=== PATIENT | male | born 1990 | race Caucasian/White ===

== ENCOUNTER 2022-12-08 11:03 | Emergency (ER) | payer OTHER, SELFPAY ==
[2022-12-08] VITALS (8 sets, daily range): BP systolic 124–173; BP diastolic 73–108; PULSE 66–84; RESP 16–23; TEMP 35.9; O2SAT 97–99; BMI 40.4
--- NOTE | 2022-12-08 11:10 | DI.RAD.S_ITS ---
PROCEDURE: XR CHEST 1V INDICATIONS: chest pain TECHNIQUE: One view of the chest was acquired. COMPARISON: None. FINDINGS: Surgical changes and devices: None. Lungs and pleura: Lungs are clear. No pleural effusions or pneumothorax. Mediastinum: Mediastinal contours appear normal. Heart size is normal. Bones and chest wall: No suspicious bony lesions. Overlying soft tissues appear unremarkable. IMPRESSION: No acute cardiopulmonary pathology. Dictated by: Flo Pizano M.D. on 12/08/2022 at 11:35 Approved by: Flo Pizano M.D. on 12/08/2022 at 11:37
[2022-12-08 11:39] LABS: Add Manual Diff / Slide Review NO; Basophils Absolute Auto 0 /uL (0-100); Basophils Percent Auto 0.3 % (0-2); Eosinophils Absolute Auto 200 /uL (0-450); Eosinophils Percent Auto 2.2 % (2-4); Hematocrit 42.1 % (41-53); Hemoglobin 14.6 g/dL (13.5-17.5); Lymphocytes Absolute Auto 1300 /uL (1100-4500); Lymphocytes Percent Auto 19.7 % (25-40); Mean Corpuscular HGB Conc 34.8 % (30-36); Mean Corpuscular Hemoglobin 27.9 PG (26-34); Mean Corpuscular Volume 80.2 fL (80-100); Monocytes Absolute Auto 300 /uL (0-900); Monocytes Percent Auto 4.3 % (3-14); Neutrophils Absolute Auto 5000 /uL (1500-7000); Neutrophils Percent Auto 73.5 % (50-75); Platelet Count 244 X10^3/uL (150-400); Red Blood Cell Count 5.25 X10^6/uL (4.5-5.9); Red Cell Distribution Width 13.7 % (11.6-14.8); White Blood Cell Count 6.8 X10^3/uL (4.5-11.0)
[2022-12-08 11:52] LABS: INR 1.2 (0.9-1.3); Prothrombin Time 13.5 SECONDS (10.1-12.7)
[2022-12-08 11:55] LABS: PTT Partial Thromboplastin Tim 31 SECONDS (26-36)
[2022-12-08 11:56] LABS: Alanine Aminotransferase 57 IU/L (<50); Albumin 4.7 g/dL (3.5-5.0); Albumin Globulin Ratio 1.5 (1.0-2.8); Alkaline Phosphatase 72 U/L (38-126); Aspartate Aminotransferase 34 IU/L (17-59); BUN Creatinine Ratio 18.9 (6-22); Bilirubin Total 0.7 mg/dL (0.2-1.3); Blood Urea Nitrogen 14 mg/dL (9-20); Calcium 9.2 mg/dL (8.4-10.2); Carbon Dioxide 25 mmol/L (22-32); Chloride 102 mmol/L (98-107); Creatine Kinase 151 U/L (55-170); Estimated Glomerular Filt Rate > 60 mL/min (>60); Globulin 3.1 g/dL (1.7-4.1); Glucose 91 mg/dL (70-100); HEMOLYSIS < 15 (0-50); Lipase 43 U/L (23-300); Magnesium 2.1 mg/dL (1.6-2.3); Sodium 140 mmol/L (137-145); Total Protein 7.8 g/dL (6.3-8.2)
[2022-12-08 12:07] LABS: Troponin I < 0.012 ng/mL (0.01-0.034)
[2022-12-08 12:11] LABS: CKMB % Relative Index 0.3 % (1.5-5.0); Creatine Kinase MB 0.39 ng/mL (<2.37)
--- NOTE | 2022-12-08 12:16 | ED.CHESTPAIN ---
HPI - Chest Pain <LEIDY Ponce - Last Filed: 12/08/22 15:01> General Chief Complaint: Chest Pain Stated Complaint: SEnt bu [facility] high BP 156/100 and chest pain Time Seen by Provider: 12/08/22 12:08 Source: patient Mode of arrival: Ambulatory Limitations: no limitations History of Present Illness HPI narrative: This is a 31-year-old male with history of hypertension for 1 year and has been on lisinopril 10 mg daily for this time without blood pressure elevation over 140 systolic most of the time. Patient states that he had elevated blood pressure today and has had 5 days of midline substernal chest pain that does not respond to food. States that it has been constant in nature, he denies symptoms like reflux or dyspepsia. He denies stool changes or nausea vomiting. He denies fever, chills, upper respiratory infection symptoms. Denies history of asthma. States that he quit chewing tobacco 1 week ago, has had stress at work, has changed his diet and has had this pain in the meantime. He is feeling anxious today he states. He denies shortness of breath or changes to his breathing. He denies history of blood clots, denies cardiac history of or a at his age. Patient denies any symptoms like this in the past. Related Data Home Medications Medication Instructions Recorded Confirmed lisinopril 10 mg tablet 10 mg PO DAILY 06/21/22 06/21/22 Previous Rx's Medication Instructions Recorded hydroxyzine HCl 10 mg tablet 10 mg PO TID PRN anxiety/nausea 06/21/22 #14 tabs omeprazole 20 mg tablet,delayed 20 mg PO DAILY #90 tabs 06/21/22 release hydroxyzine HCl 25 mg tablet 25 mg PO TID PRN anxiety/nausea 12/08/22 #20 tabs lisinopril 10 mg tablet 20 mg PO DAILY #60 tabs 12/08/22 omeprazole 40 mg capsule,delayed 40 mg PO DAILY #30 caps 12/08/22 release sucralfate 1 gram tablet (Carafate) 1 g PO TID PRN epigastric pain #60 12/08/22 tabs Allergies Allergy/AdvReac Type Severity Reaction Status Date / Time No Known Drug Allergies Allergy Verified 12/08/22 11:08 Patient History <LEIDY Ponce - Last Filed: 12/08/22 15:01> Social History Smoking Status: Never smoker Smoking Status: Never smoker alcohol intake frequency: holidays/special occasions only Substance Use Type: does not use Exam <LEIDY Ponce - Last Filed: 12/08/22 15:01> Narrative Exam Narrative: Reviewed vitals signs and nursing notes. General: cooperative, comfortable, in no acute distress, well groomed HEENT: symmetrical facial expressions, moist mucous membranes Cardiovascular: regular rate and rhythm, hypertensive 130s to 140s systolic, S1-S2 without murmur, no peripheral edema, warm extremities Respiratory: normal effort, able to speak in complete sentences, without wheezing, stridor, or abnormal breath sounds. No retractions or tachypnea. GI: abdomen soft, nontender to palpation, nondistended, without masses, rebound tenderness or exquisite tenderness with exam. MSK: moves all extremities, neurovascularly intact, no weakness, normal tone Skin: brisk capillary refill, without pallor or erythema Neuro: normal speech and cognition, A&O x3, ambulatory, clear speech Psych: mental status is grossly normal, congruent mood, normal affect, pleasant and cooperative Initial Vital Signs Initial Vital Signs: Vital Signs Temperature 96.6 F L 12/08/22 11:08 Pulse Rate 84 12/08/22 11:08 Respiratory Rate 16 12/08/22 11:08 Blood Pressure 173/108 H 12/08/22 11:08 Pulse Oximetry 97 12/08/22 11:08 Oxygen Delivery Method 12/08/22 11:08 <Ever Gonzalez DO - Last Filed: 12/08/22 15:07> Initial Vital Signs Initial Vital Signs: Vital Signs Temperature 96.6 F L 12/08/22 11:08 Pulse Rate 84 12/08/22 11:08 Respiratory Rate 16 12/08/22 11:08 Blood Pressure 173/108 H 12/08/22 11:08 Pulse Oximetry 97 12/08/22 11:08 Oxygen Delivery Method 12/08/22 11:08 Course <LEIDY Ponce - Last Filed: 12/08/22 15:01> Orders Ordered: ED Orders 12/08/22 11:10 XR chest 1V Stat 12/08/22 11:21 EKG-12 Lead Stat 12/08/22 11:32 Complete Blood Count AUTO DIFF Stat Comprehensive Metabolic Panel Stat Lipase Stat Magnesium Stat Partial Thromboplastin Time Stat Prothrombin Time INR Stat Troponin & CK Cardiac Panel Stat Discontinued Medications Al Hydrox/Mg Hydrox/Simethicone 20 ml/ Lidocaine HCl 15 ml 0 ml PO NOW ONE Stop: 12/08/22 12:17 Last Admin: 12/08/22 12:31 Dose: 20 ml Documented By: CORKY Pantoprazole Sodium (Pantoprazole Dr 20 Mg Tablet) 20 mg PO NOW ONE Stop: 12/08/22 12:17 Last Admin: 12/08/22 12:24 Dose: Not Given Documented By: CORKY Pantoprazole Sodium (Pantoprazole 40 Mg Vial) 20 mg IV NOW ONE Stop: 12/08/22 12:24 Last Admin: 12/08/22 12:31 Dose: 20 mg Documented By: CORKY Vital Signs Vital signs: Vital Signs - 8 hr 12/08/22 11:08 12/08/22 11:14 12/08/22 11:30 Temperature 96.6 F L Pulse Rate 84 79 74 Respiratory Rate 16 23 Blood Pressure 173/108 H Pulse Oximetry 97 99 98 Oxygen Delivery Method Room Air 12/08/22 11:32 12/08/22 11:32 12/08/22 12:00 Temperature Pulse Rate 77 Respiratory Rate 22 Blood Pressure 139/91 H 124/75 Pulse Oximetry 98 Oxygen Delivery Method 12/08/22 12:00 12/08/22 12:30 12/08/22 12:31 Temperature Pulse Rate 72 66 Respiratory Rate 18 16 Blood Pressure 138/73 Pulse Oximetry 98 98 Oxygen Delivery Method 12/08/22 12:31 12/08/22 12:46 12/08/22 12:46 Temperature Pulse Rate 76 75 Respiratory Rate 22 22 Blood Pressure 143/78 H Pulse Oximetry 97 98 Oxygen Delivery Method <Ever Gonzalez DO - Last Filed: 12/08/22 15:07> Orders Ordered: ED Orders 12/08/22 11:10 XR chest 1V Stat 12/08/22 11:21 EKG-12 Lead Stat 12/08/22 11:32 Complete Blood Count AUTO DIFF Stat Comprehensive Metabolic Panel Stat Lipase Stat Magnesium Stat Partial Thromboplastin Time Stat Prothrombin Time INR Stat Troponin & CK Cardiac Panel Stat Discontinued Medications Al Hydrox/Mg Hydrox/Simethicone 20 ml/ Lidocaine HCl 15 ml 0 ml PO NOW ONE Stop: 12/08/22 12:17 Last Admin: 12/08/22 12:31 Dose: 20 ml Documented By: CORKY Pantoprazole Sodium (Pantoprazole Dr 20 Mg Tablet) 20 mg PO NOW ONE Stop: 12/08/22 12:17 Last Admin: 12/08/22 12:24 Dose: Not Given Documented By: CORKY Pantoprazole Sodium (Pantoprazole 40 Mg Vial) 20 mg IV NOW ONE Stop: 12/08/22 12:24 Last Admin: 12/08/22 12:31 Dose: 20 mg Documented By: CORKY Vital Signs Vital signs: Vital Signs - 8 hr 12/08/22 11:08 12/08/22 11:14 12/08/22 11:30 Temperature 96.6 F L Pulse Rate 84 79 74 Respiratory Rate 16 23 Blood Pressure 173/108 H Pulse Oximetry 97 99 98 Oxygen Delivery Method Room Air 12/08/22 11:32 12/08/22 11:32 12/08/22 12:00 Temperature Pulse Rate 77 Respiratory Rate 22 Blood Pressure 139/91 H 124/75 Pulse Oximetry 98 Oxygen Delivery Method 12/08/22 12:00 12/08/22 12:30 12/08/22 12:31 Temperature Pulse Rate 72 66 Respiratory Rate 18 16 Blood Pressure 138/73 Pulse Oximetry 98 98 Oxygen Delivery Method 12/08/22 12:31 12/08/22 12:46 12/08/22 12:46 Temperature Pulse Rate 76 75 Respiratory Rate 22 22 Blood Pressure 143/78 H Pulse Oximetry 97 98 Oxygen Delivery Method MDM - Chest Pain <BYRON PonceP - Last Filed: 12/08/22 15:01> Lab Data 12/08/22 11:32 12/08/22 11:32 Labs: Lab Results 12/08/22 12/08/22 12/08/22 Range/Units 11:32 11:32 11:32 WBC 6.8 (4.5-11.0) X10^3/uL RBC 5.25 (4.5-5.9) X10^6/uL Hgb 14.6 (13.5-17.5) g/dL Hct 42.1 (41-53) % MCV 80.2 (80-100) fL MCH 27.9 (26-34) PG MCHC 34.8 (30-36) % RDW 13.7 (11.6-14.8) % Plt Count 244 (150-400) X10^3/uL Neut % (Auto) 73.5 (50-75) % Lymph % (Auto) 19.7 L (25-40) % Evangeline % (Auto) 4.3 (3-14) % Eos % (Auto) 2.2 (2-4) % Baso % (Auto) 0.3 (0-2) % Neut # (Auto) 5000 (7338-8876) /uL Lymph # (Auto) 1300 (6244-3843) /uL Evangeline # (Auto) 300 (0-900) /uL Eos # (Auto) 200 (0-450) /uL Baso # (Auto) 0 (0-100) /uL PT 13.5 H (10.1-12.7) SECONDS INR 1.2 (0.9-1.3) APTT 31 (26-36) SECONDS Sodium 140 (137-145) mmol/L Potassium 4.0 (3.4-5.1) mmol/L Chloride 102 (98-107) mmol/L Carbon Dioxide 25 (22-32) mmol/L BUN 14 (9-20) mg/dL Creatinine 0.74 (0.66-1.25) mg/dL Estimated GFR > 60 (>60) mL/min BUN/Creatinine Ratio 18.9 (6-22) Glucose 91 (70-100) mg/dL Calcium 9.2 (8.4-10.2) mg/dL Magnesium 2.1 (1.6-2.3) mg/dL Total Bilirubin 0.7 (0.2-1.3) mg/dL AST 34 (17-59) IU/L ALT 57 H (<50) IU/L Alkaline Phosphatase 72 (38-126) U/L Total Creatine Kinase 151 (55-170) U/L CK-MB (CK-2) 0.39 (<2.37) ng/mL CK-MB (CK-2) Rel Index 0.3 L (1.5-5.0) % Troponin I < 0.012 (0.01-0.034) ng/mL Total Protein 7.8 (6.3-8.2) g/dL Albumin 4.7 (3.5-5.0) g/dL Globulin 3.1 (1.7-4.1) g/dL Albumin/Globulin Ratio 1.5 (1.0-2.8) Lipase 43 (23-300) U/L Imaging Data Chest x-ray: Radiologist's Impression: PROCEDURE:? XR CHEST 1V ? INDICATIONS:? chest pain ? TECHNIQUE:? One view of the chest was acquired.? ? COMPARISON:? None. ? FINDINGS:? ? Surgical changes and devices:? None.? ? Lungs and pleura:? Lungs are clear.? No pleural effusions or pneumothorax.? ? Mediastinum:? Mediastinal contours appear normal.? Heart size is normal.? ? Bones and chest wall:? No suspicious bony lesions.? Overlying soft tissues appear unremarkable.? ? IMPRESSION:? No acute cardiopulmonary pathology. ? ? Dictated by: Flo Pizano M.D. on 12/08/2022 at 11:35 ? ? Approved by: Flo Pizano M.D. on 12/08/2022 at 11:37 ? ECG Data Interpretation: EKG independently reviewed by myself at [1230] reveals normal sinus rhythm at [74] bpm with regular axis and intervals. No STEMI, ST segment changes, arrhythmia, or acute ischemic changes. No prior EKGs to review MDM Narrative Medical decision making narrative: Chief Complaint: Hypertension, chest pain x5 days Differential diagnoses include but are not limited to: ACS, PE, aortic dissection, myocarditis, PUD/GERD with esophagitis, costochondritis, pericarditis, myocarditis, CHF, STEMI, NSTEMI, unstable angina, viral syndrome gastric/duodenal ulcer. I have reviewed the patient's vital signs and nursing notes as well as prior records if available. Lab test results independently reviewed, pertinent findings: Patient does not have leukocytosis, anemia, coagulation abnormalities electrolyte abnormalities, elevation to liver enzymes, troponin is negative for elevation including CK, lipase of 43 Independently reviewed imaging including: Chest x-ray without widened mediastinum, focal opacity or pneumothorax Clinical decision rules or scores evaluated: Heart score of 0 Course of care and re-evaluations: Assess patient's symptoms, is not reproducible by palpation, patient endorses quitting chewing nicotine 6 days ago, has been using caffeinated workout supplements and recently changed his diet. He takes 10 mg of lisinopril daily, systolics at home have been 140s but today 150s and he came in for concern. Ordered GI cocktail which provided patient's some relief, he states that that is where his pain is coming from. Gave him 20 mg of Protonix as well, will treat with Carafate and 40 mg of omeprazole daily with follow-up with his PCP in 4 days. For hypertension, Will treat patient with 20 mg lisinopril daily, he does not have bothersome symptoms including cough or headache. He understands to reduce his lisinopril to 10 mg daily if he has any systolic blood pressures less than 110 or less than 100. He has scheduled follow-up, no evidence of strain on his EKG or troponin. Recommend patient follow-up with [facility] for upper endoscopy if his symptoms improve but not fully go away on omeprazole. Shared GERD diet and FODMAP diet for diet recommendations. Shared decision making: With patient regarding plan of care Patient's symptoms improved over duration of stay with above-stated therapies. Social considerations that may affect disposition: None Questions are addressed and there is agreement with the plan and for follow-up. Patient is appropriate for outpatient management. MIPS: This encounter doesn't have any diagnosis' associated with MIPS criteria. <Ever Gonzalez, DO - Last Filed: 12/08/22 15:07> Lab Data Labs: Lab Results 12/08/22 12/08/22 12/08/22 Range/Units 11:32 11:32 11:32 WBC 6.8 (4.5-11.0) X10^3/uL RBC 5.25 (4.5-5.9) X10^6/uL Hgb 14.6 (13.5-17.5) g/dL Hct 42.1 (41-53) % MCV 80.2 (80-100) fL MCH 27.9 (26-34) PG MCHC 34.8 (30-36) % RDW 13.7 (11.6-14.8) % Plt Count 244 (150-400) X10^3/uL Neut % (Auto) 73.5 (50-75) % Lymph % (Auto) 19.7 L (25-40) % Evangeline % (Auto) 4.3 (3-14) % Eos % (Auto) 2.2 (2-4) % Baso % (Auto) 0.3 (0-2) % Neut # (Auto) 5000 (8586-2816) /uL Lymph # (Auto) 1300 (5708-9114) /uL Evangeline # (Auto) 300 (0-900) /uL Eos # (Auto) 200 (0-450) /uL Baso # (Auto) 0 (0-100) /uL PT 13.5 H (10.1-12.7) SECONDS INR 1.2 (0.9-1.3) APTT 31 (26-36) SECONDS Sodium 140 (137-145) mmol/L Potassium 4.0 (3.4-5.1) mmol/L Chloride 102 (98-107) mmol/L Carbon Dioxide 25 (22-32) mmol/L BUN 14 (9-20) mg/dL Creatinine 0.74 (0.66-1.25) mg/dL Estimated GFR > 60 (>60) mL/min BUN/Creatinine Ratio 18.9 (6-22) Glucose 91 (70-100) mg/dL Calcium 9.2 (8.4-10.2) mg/dL Magnesium 2.1 (1.6-2.3) mg/dL Total Bilirubin 0.7 (0.2-1.3) mg/dL AST 34 (17-59) IU/L ALT 57 H (<50) IU/L Alkaline Phosphatase 72 (38-126) U/L Total Creatine Kinase 151 (55-170) U/L CK-MB (CK-2) 0.39 (<2.37) ng/mL CK-MB (CK-2) Rel Index 0.3 L (1.5-5.0) % Troponin I < 0.012 (0.01-0.034) ng/mL Total Protein 7.8 (6.3-8.2) g/dL Albumin 4.7 (3.5-5.0) g/dL Globulin 3.1 (1.7-4.1) g/dL Albumin/Globulin Ratio 1.5 (1.0-2.8) Lipase 43 (23-300) U/L Discharge Plan Departure Patient Disposition: Home Clinical Impression: Epigastric pain, Nicotine withdrawal Hypertension Qualifiers: Hypertension type: unspecified Qualified Code(s): I10 - Essential (primary) hypertension Instructions: High Blood Pressure, DI for Gastroesophageal Reflux Disease (GERD), DI for Epigastric Pain, GERD Diet, Low FODMAP Diet Activity Restrictions/Additional Instructions: *You have been diagnosed with chest pain which is likely epigastric pain, this could be due to gastric ulcer or gastritis, GERD with reflux esophagitis since it is up higher, H pylori, or increased acid production. Typically it is a combination of all of the above plus the nicotine withdrawal. Use Carafate as needed to help coat your stomach. The ideas to not let it be empty for long periods of time. Use the diet recommendations to see if this helps with your pain, follow-up with your provider on Sunday as scheduled. Please start taking 20 mg of lisinopril daily if this keeps your blood pressure between 110 systolic and 130 systolic. If you have a systolic less than 100, please go back to 10 mg daily. Stay hydrated, follow-up with [facility] for an EGD as indicated. Nirmala can put this referral in for you. Please start taking omeprazole 40 mg daily 1st thing in the morning on an empty stomach. I hope you feel better soon there was no signs of cardiac strain while you are here today in the emergency department. *What to do: *Please continue to take your regular medications as directed. [x ] New medication prescriptions sent to your pharmacy: [[facility] [place] ] [ ] New medication written as a paper prescription [ ] No new medications given *Please follow up with your primary care provider in 2-3 days, call for an appointment. Let them know you were seen in the Emergency Department and that we asked that you be seen for follow-up. We will electronically transmit a record of today's note if your PCP is in our system *If you do not have a primary care provider please contact [phone] to establish care with one of the [facility] primary care providers. *Return to Emergency Department if you should have any new, worsening, or concerning symptoms, such as [fever greater than 101F, chills, worsening pain, persistent vomiting or other bothersome symptoms]. Prescriptions: New omeprazole 40 mg capsule,delayed release(DR/EC) 40 mg PO DAILY Qty: 30 0RF lisinopril 10 mg tablet 20 mg PO DAILY Qty: 60 2RF hydroxyzine HCl 25 mg tablet 25 mg PO TID PRN (Reason: anxiety/nausea) Qty: 20 0RF sucralfate [Carafate] 1 gram tablet 1 g PO TID PRN (Reason: epigastric pain) Qty: 60 0RF No Action lisinopril 10 mg tablet 10 mg PO DAILY omeprazole 20 mg tablet,delayed release (DR/EC) 20 mg PO DAILY Qty: 90 3RF hydroxyzine HCl 10 mg tablet 10 mg PO TID PRN (Reason: anxiety/nausea) Qty: 14 0RF Referrals: [facility] [Provider Group] (Follow-up for EGD, discuss this with Nirmala) Giana Pearson PA-C [Physician Director Of Special Services] - Provider,Jeovanny GUILLEN [Primary Care Provider] - Stand Alone Forms: Patient Portal/API <Ever Gonzalez DO - Last Filed: 12/08/22 15:07> Cosign ED Attending Cosdonaature Attestation: Dr Gonzalez Co-Sign Statement: I was available for consultation during this patient's emergency department visit. This chart is signed by myself for administrative purposes only. I did not have direct contact with this patient during this visit. They were seen independently by the APC.
[2022-12-08] MEDS: PANTOPRAZOLE 40 MG VIAL 20 MG IV (12:31)
[2022-12-08] MEDS: MAG HYDROX/ALUMINUM/SIMETH SUS 20 ML, LIDOCAINE VISCOUS 2% 15 ML PO (12:31)
== END 2022-12-08 13:01 | disposition home or self-care (01) ==
PROVIDERS: Emergency Medicine; Emergency Provider Nurse Practitioner Critical Care Medicine
DX: R10.13 Epigastric pain (principal); I10 Essential (primary) hypertension; F17.203 Nicotine dependence unspecified, with withdrawal
CPT/HCPCS: 36415; 71045; 80053; 82550; 82553; 83690; 83735; 84484; 85025; 85610; 85730; 93005; 96374; 99284; C9113